=== PATIENT | male | born 2005 | race Two or more races ===

== ENCOUNTER 2024-11-03 14:13 | Emergency (ER) | payer OTHER ==
[2024-11-03] MEDS ORDERED: Sodium Chloride 0.9% 10 ML Syringe FLUSH PRN (14:19)
[2024-11-03] MEDS: diphenhydrAMINE 50 MG/ML SDV IVPUSH ONE (14:25)
[2024-11-03] MEDS: Dexamethasone 4 MG/ML SDV IVPUSH ONE (14:29)
== END 2024-11-03 15:52 | disposition home or self-care (01) ==
LOC: VM.ED 14:13
DX: T78.49XA Other allergy, initial encounter (principal)
CPT/HCPCS: 96374; 96375; 99283; 99283-25; A9270-GY; J1100; J1200; J1308